=== PATIENT | female | born 1940 | race Caucasian/White ===

== ENCOUNTER → 2025-05-06 11:54 | Outpatient (REF) | payer MEDICARE, SELFPAY ==
[2025-05-06 13:04] LABS: ALT (SGPT) 12 U/L (0-35); AST (SGOT) 25 U/L (14-36); Albumin 2.6 g/dl (3.5-5.0); Alkaline Phosphatase 76 U/L (38-126); Total Protein 5.4 g/dl (6.3-8.2)
[2025-05-06 14:19] LABS: TSH 1.36 uIU/ml (0.47-4.68)
== END ==
LOC: OLABN 11:54
PROVIDERS: ATTENDING PHYSICIAN Student in an Organized Health Care Education/Training Program
DX: T79.6XXA Traumatic ischemia of muscle, initial encounter (principal); Z79.899 Other long term (current) drug therapy
CPT/HCPCS: 36415; 80076; 84443